=== PATIENT | female | born 2000 | race Hispanic/Latino ===

== ENCOUNTER 2024-10-20 14:58 | Day surgery (SDC) | payer MEDICAID ==
[2024-10-20 15:35] VITALS: BMI 33.3
[2024-10-20] MEDS: Metoclopramide HCl 10 MG TAB PO SCH (16:07)
[2024-10-20 16:14] LABS: Bilirubin 1+ (Negative); Blood, Urine 25 (Negative); Clarity Cloudy (Clear); Glucose, Urine (Dipstick) 50 mg/dL (Negative); Ketone, Urine Negative (Negative); Leukocyte 500 (Negative); Nitrite Negative (Negative); Protein, Urine (Dipstick) 100 mg/dl (Neg-Trace); Specific Gravity, Urine 1.025 (1.005-1.030)
[2024-10-20 16:41] LABS: #Basophils 0.05 10x3/uL (0.0-0.2); #Monocytes 1.11 10x3/uL (0.0-1.1); #Neutrophils 9.68 10x3/uL (1.5-8.4); %Basophils 0.4 % (0.0-2.0); %Eosinophils 0.8 % (0.0-6.0); %Lymphocytes 14.6 % (18.0-47.0); %Monocytes 8.6 % (0.0-10.0); %Neutrophils 74.8 % (40.0-75.0); Hemoglobin 10.3 g/dL (12.0-15.5); Mean Corpuscular HGB CONC 33.2 g/dL (32.0-36.0); Mean Corpuscular Hemoglobin 26.8 pg (27.0-33.0); Mean Corpuscular Volume 80.5 fL (81.6-98.3); Platelet Count 321 10x3/uL (150-450); RBC Distribution Width 12.9 % (11.5-14.5); Red Blood Cell (RBC) Count 3.85 10x6/uL (3.90-5.03); White Blood Cell (WBC) Count 12.93 10x3/uL (3.5-10.5)
[2024-10-20 16:47] LABS: Creatinine, Urine 293.59 mg/dL (16.00-327.00)
[2024-10-20 16:55] LABS: ALT (SGPT) 14 U/L (Less than 34); AST (SGOT) 27 U/L (11-34); Albumin 2.9 g/dL (3.1-4.5); Alkaline Phosphatase 167 U/L (40-110); Anion Gap 11 mmol/L (10-20); BUN (Urea Nitrogen) Less than 4 mg/dL (7.0-18.7); Bilirubin, Total 0.6 mg/dL (0.3-1.2); Calc. Creatinine Clearance 264 mL/min (70-130); Calcium 9.1 mg/dL (7.8-10.44); Carbon Dioxide 20 mmol/L (22-29); Chloride 106 mmol/L (98-107); Estimated GFR 135; Globulin 4.4 g/dL (2.4-3.5); Glucose 93 mg/dL (70-105); Potassium 3.3 mmol/L (3.5-5.1); Protein, Total 7.3 g/dL (6.0-8.3); Sodium 134 mmol/L (136-145)
[2024-10-20 16:56] LABS: Bacteria/HPF 3+ HPF (None Seen); CAUTI Indications for Culture Pregnancy; Calcium Oxalate Crystals 1+ HPF (None Seen)
[2024-10-20 16:58] LABS: Urine Culture Reflex Yes Yes
== END 2024-10-20 17:47 | disposition home or self-care (01) ==
LOC: CSHLD/OP 14:58
PROVIDERS: ATTEND Family Medicine
DX: O99.891 Other specified diseases and conditions complicating pregnancy (principal); R03.0 Elevated blood-pressure reading, without diagnosis of hypertension; R51.9 Headache, unspecified; O10.913 Unspecified pre-existing hypertension complicating pregnancy, third trimester; O23.43 Unspecified infection of urinary tract in pregnancy, third trimester; Z3A.33 33 weeks gestation of pregnancy; Z79.899 Other long term (current) drug therapy
CPT/HCPCS: 36415; 80053; 81001; 82570; 84156; 85025; 87086; 99285